=== PATIENT | male | born 1985 | race Caucasian/White ===

== ENCOUNTER 2017-06-22 10:43 | Emergency (ER) | payer SELFPAY ==
[~2017-06-22] VITALS: Ht 167.6 cm; Wt 95.3 kg
--- NOTE | ~2017-06-22 | CR72 ---
[facility]. [facility] A Service of [facility] & [facility] RADIOLOGY TEXT RESULTS PATIENT: SHERINE CHOPRA LOCATION: SED : 85 UNIT #: [id number] AGE: [address]: Abelardo Higuera MD SEX: M ORDER DR: [id number] [place] [id number] E MR#: [id number] Acc #: [id number] NAME: SHERINE CHOPRA : 1985 SEX: M STUDY DATE/TIME: 06/22/2017 11:06 UNIT: SED ROOM: STUDY DESCRIPTION: CR Chest Single View Portable Attending Physician: Abelardo Higuera M.D. Ordering Physician: Abelardo Higuera M.D. Primary Care Physician: Hari Mata M.D. MEDICAL IMAGING REPORT This report is preliminary unless electronic signature is present. EXAM Portable chest, 1 view, 06/22/2017. COMPARISON 02/25/2013 HISTORY Two-day history of chest pain radiating to neck and shoulder. FINDINGS A single AP portable view of the chest shows both lungs to be clear. The heart is normal in size. The mediastinal contour is normal. No significant bone abnormalities are seen. IMPRESSION Normal portable chest. Dictated by... Adarsh Yeung M.D. THIS IS AN ELECTRONICALLY VERIFIED REPORT Adarsh Yeung M.D. at 06/26/2017 5:02 PM NAVEED/nya TD: 06/22/2017 13:51 JOB #: [id number] MEDICAL IMAGING REPORT Page 1 of 1
--- NOTE | ~2017-06-22 | EKG ---
PATIENT: SHERINE CHOPRA UNIT #: [id number] Ventricular Rate: 77 BPM Atrial Rate: 77 BPM P-R Interval: 138 ms QRS Duration: 92 ms Q-T Interval: 386 ms QTC Calculation(Bezet): 436 ms P [place]: 57 degrees Calculated R [place]: 58 degrees Calculated T [place]: 25 degrees Diagnosis Line: Normal sinus rhythm with sinus arrhythmia Diagnosis Line: Normal ECG Diagnosis Line: When compared with ECG of 17-DEC-2013 04:32, Diagnosis Line: No significant change was found Diagnosis Line: Confirmed by BELLA DENNIS MD ([id number]) on Diagnosis Line: 06/25/2017 8:22:33 AM INTERPRETING MD: JEANNIE SHIELDS
[~2017-06-22 10:43] MED LIST: AMOXICILLIN875 MG PO; BACTRIM DS TABL1 TA1 PO; CLEOCIN150 MG; DICLOFENAC; FAMOTIDINE PO; FLEXERIL10 M1 PO; FLEXERIL10 MG; KEFLEX500 MG PO; NO MEDICATIONS; SUDAFED30 M1 PO; VOLTAREN50 MG PO; VOLTAREN75 MG PO
[2017-06-22 11:17] LABS: POC - CKMB 3.6 ng/mL (0.0-7.9); POC - TROPONIN <0.05 ng/mL (<=0.05)
[2017-06-22 11:29] LABS: BASOPHIL# 0.1 X10e3 (0-0.3); BASOPHIL% 0.6 % (0-2.5); EOSINOPHIL# 0.3 X10e3 (0-0.7); EOSINOPHIL% 3.1 % (0.0-7.0); HEMATOCRIT 48.4 % (38.0-50.0); HEMOGLOBIN 16.5 gm/dL (13.0-16.0); LYMPHOCYTE# 2.4 X10e3 (1.0-3.5); LYMPHOCYTE% 25.4 % (17.0-45.0); MEAN CELL VOLUME 90.4 FL (83-96); MEAN CORPUSCULAR HEMOGLOBIN 30.9 PG (28-34); MEAN CORPUSCULAR HGB CONC 34.2 g/dL (30-36); MEAN PLATELET VOLUME 8.8 FL (6.5-11.5); MONOCYTE# 1.1 X10e3 (0-1.0); MONOCYTE% 11.4 % (3.0-12.0); NEUTROPHIL# 5.6 X10e3 (1.5-7.1); NEUTROPHIL% 59.5 % (40-75); PLATELET COUNT 200 X10e3 (140-420); RED BLOOD COUNT 5.35 X10e (3.90-5.60); RED CELL DISTRIBUTION WIDTH 13.4 % (11.0-15.5); WHITE BLOOD COUNT 9.4 X10e3 (4.0-10.5)
[2017-06-22 11:46] LABS: DIFF IND NO
[2017-06-22 11:51] LABS: INR 1.1; PROTHROMBIN TIME (PATIENT) 12.1 SECONDS (9.5-12.4)
[2017-06-22 11:58] LABS: PARTIAL THROMBOPLASTIN TIME 28.8 SECONDS (25.6-38.1)
[2017-06-22 12:03] LABS: ALBUMIN SERUM 5.4 g/dL (3.5-5.0); BILIRUBIN, DIRECT 0.2 mg/dL (0.0-0.2); BILIRUBIN,INDIRECT 0.6 mg/dL (0.0-0.9); BILIRUBIN,TOTAL 0.8 mg/dL (0.2-2.0); BUN/CREATININE RATIO 14.54; CALCIUM SERUM 9.2 mg/dL (8.4-10.2); CREATININE SERUM 1.1 mg/dL (0.6-1.4); POTASSIUM 3.7 mmol/L (3.5-5.1); PROTEIN TOTAL SERUM 8.4 g/dL (6.0-8.3)
[2017-06-22 12:07] LABS: DDIMER <200 NG/ML (0-200)
== END 2017-06-22 12:34 | disposition home or self-care (01) ==
LOC: SED 10:43
PROVIDERS: Emergency Medicine
DX: R07.89 Other chest pain (principal); M54.2 Cervicalgia; F17.200 Nicotine dependence, unspecified, uncomplicated
CPT/HCPCS: 36415; 71010; 80048; 80076; 82553; 83874; 84484; 85025; 85379; 85610; 85730; 93005; 96361; 96374; 99285; J1885